=== PATIENT | female | born 1935 | race Caucasian/White ===

== ENCOUNTER 2019-07-17 05:27 | Day surgery (SDC) | payer OTHER ==
[~2019-07-17 05:27] MED LIST: CRESTOR5 MG PO; HYZAAR 100-12.1 EACH PO; SYNTHROID50 MCG PO
[2019-07-17] MEDS ORDERED: PERCOCET 5-3251 EACH PO (08:24)
[2019-07-17] MEDS ORDERED: RECTICARE30 GM TOP (08:24)
== END 2019-07-17 16:25 | disposition home or self-care (01) ==
LOC: CIR.AMB 05:27 → ADM 08:30 → CIR.AMB 16:25
DX: D12.8 Benign neoplasm of rectum (principal)